=== PATIENT | male | born 1995 | race Asian ===

== ENCOUNTER 2020-03-09 06:56 | Outpatient (NON) | payer OTHER, SELFPAY ==
[2020-03-09 10:51] LABS: Influenza Control Positive
[2020-03-09 17:11] LABS: SARS-CoV-2 RNA PCR Negative
== END 2020-03-09 06:57 ==
LOC: ANHCOVIDDT 06:58
PROVIDERS: PCP Internal Medicine; Visit Provider Clinical Nurse Specialist
DX: Z20.828 Contact with and (suspected) exposure to other viral communicable diseases (principal); R05 Cough
CPT/HCPCS: 87635; 87804; C9803; U0003